=== PATIENT | male | born 1950 | race Caucasian/White ===

== ENCOUNTER → 2018-08-03 09:42 | Outpatient (CLI) | payer MEDICARE ==
[~2018-08-03 09:42] MED LIST: LISINOPRIL10 MG PO; LOVASTATIN40 MG PO; TOPROL XL25 MG PO
--- NOTE | 2018-08-10 11:18 | ST ---
PATIENT:MANFRED CHASE MEDICAL RECORD: [id number] SEX: M LOCATION:[facility] ORDER #: ADMISSION DATE: 08/03/18 AGE OF PATIENT: 67 REFERRING PHYSICIAN: INTERPRETING PHYSICIAN: KAREN ALMAGUER MD DATE OF SERVICE: 08/03/2018 Nuclear Stress Test INDICATION: Angina and coronary artery disease. He was exercised on standard Lexiscan protocol with 33 mCi of sestamibi injected at peak stress. Rest images were done previously with 11 mCi. FINDINGS: Gated SPECT reveals a preserved ejection fraction at 67% with good wall motioning and thickening and brightening throughout all segments. SPECT imaging Cardiolite was used as myocardial perfusion agent. There are reversible changes inferiorly and laterally. This includes the basal, mid apical, inferior segments as well as the apical lateral, mid lateral, and basal lateral segments. The degree of reversibility is moderate. The amount of myocardium involved is large. OVERALL IMPRESSION: 1. This is an abnormal nuclear stress test, moderate amount of reversible ischemia in the inferior and lateral segments. 2. Gated SPECT reveals a preserved ejection fraction at 67% in this patient with ongoing symptomatology. The current scan suggests presence of hemodynamically significant coronary disease and possibly multivessel disease. We will proceed with coronary angiography as followup study. TRANSINT:[id number] Voice Confirmation ID: [id number] DOCUMENT ID: [id number] KAREN ALMAGUER MD at 1118 CC: [id number] DICTATION DATE: 08/03/18 1630 STUDENT SERVICES DIRECTOR: 08/04/18 0510 DEP CLI 08/03/18 [place] [id number] [place] [id number]
[2018-08-10 11:52] VITALS: BMI 42.0
== END | disposition home or self-care (01) ==
LOC: D.HCCARDIO 09:42
DX: I25.709 Atherosclerosis of coronary artery bypass graft(s), unspecified, with unspecified angina pectoris (principal)

== ENCOUNTER 2018-08-10 11:23 | Outpatient (CLI) | payer MEDICARE ==
[~2018-08-10] VITALS: Ht 167.6 cm; Wt 118.2 kg
--- NOTE | ~2018-08-10 | HEMODYNAMI ---
PATIENT:MANFRED CHASE MEDICAL RECORD: [id number] : 48 LOCATION:[facility] ADMISSION DATE: 08/10/18 Generatedon:08/10/201814:03 Patient name: MANFRED CHASE Patient #: [id number] SSN: : 1950 Date of study: 08/10/2018 Page: Of Hemodynamic Procedure Report Patient Data Patient Demographics Procedure consent was obtained First Name: MANFRED Gender: Male Last Name: SALVATORE : 1950 [facility] Initial: [facility] Age: 67 year(s) Patient #: [id number] Race: Unknown Additional ID: [id number] Contact details [address]: [address] [place] [address] State: [place] City: [place] Zip code: [address] Past Medical History Allergies: No known allergies Admission Admission Data Admission Date: 08/10/2018 Admission Time: 11:23 Height (in.): 65.75 BSA: 2.23 (m2) Height (cm.): 167 BMI: 42.31 (kg/m2) Weight (lbs.): 260.15 Weight (kg.): 118 Lab Results Lab Result Date: 08/10/2018 Lab Result Time: 0:00 Biochemistry Name Units Result Min Max BUN mg/dl 21 --(----)-* 7 18 Creatinine mg/dl 1 --(--*-)-- 0.6 1.3 CBC Name Units Result Min Max Hemoglobin g/dl 14.4 --(*---)-- 13.5 17.5 Procedure Procedure Types Cath Procedure Diagnostic Procedure LHC LHC w/Coronaries w/Grafts Aortic Root Angiography Sedation Charges Moderate Sedation up to 30 minutes Procedure Description Procedure Date Procedure Date: 08/10/2018 Procedure Start Time: 13:32 Procedure End Time: 13:58 Procedure Staff Name Function Raymond Song MD Performing Physician Gely Lopez RT Monitor Go Gomez RN Nurse Shazia Land RT Scrub Procedure Data Cath Procedure Fluoroscopy Diagnostic fluoroscopy Total fluoroscopy Time: time: 10.4 min 10.4 min Diagnostic fluoroscopy Total fluoroscopy dose: dose: 1722 mGy 1722 mGy Contrast Material Contrast Material Type Amount (ml) Isovue 300 189 Entry Location Entry Primary Successful Side Size Upsize Upsize Entry Closure Succes sful Closure Location (Fr) 1 (Fr) 2 (Fr) Remarks Device Remarks Femoral Right 5 Fr Exoseal artery Estimated blood loss: 10 ml Diagnostic catheters Device Type Used For End Catheter Placement MULTIPACK JL 4.0 5Fr Procedure catheter MULTIPACK 3DRC 5Fr Procedure catheter DIAGNOSTIC AR MOD 5Fr Procedure Catheter ([id number]) MULTIPACK Pigtail 5 Fr Ventriculography catheter DIAGNOSTIC JR 4 5Fr Procedure catheter ([id number]) Procedure Complications No complications Procedure Medications Medication Administration Route Dosage 0.9% NaCl I.V. 100 ml/hr Oxygen etCO2 Nasal cannula 2 l/min Heparin Flush Bag added to field 2 bags (1000units/500ml NS) Lidocaine 2% added to field 20 Versed I.V. 2 mg Fentanyl I.V. 100 mcg Versed I.V. 1 mg Hemodynamics Rest BSA: 2.23 (m2) HGB: 14.4 (g/dl) O2 Consumption: Estimated: 267.15 (ml/min) O2 Co nsumption indexed: Estimated:119.8 (ml/min/m) Heart Rate: 80 (bpm) Pressure Samples Time Site Value (mmHg) Purpose Heart Use Rate(bpm) 13:48 LV 123/17,26 Snapshot 77 13:48 AO 116/60(83) Pullback 77 13:48 LV 120/12,19 Pullback 77 Gradients Valve Time Site 1 Site 2 Mean SEP/DFP Peak To Heart Use (mmHg) (sec/min) Peak Rate (mmHg) (bpm) Aortic 13:48 LV AO 8 21 4 77 120/12,19 116/60(83) Calculations Valve P-P Mean Valve Index Valve Source Name Gradient Area Flow (cm2) Aortic 4 8 4 8 Snapshots Pre Cath Intra NCS Post Cath Vital Signs Time Heart Resp SPO2 etCO2 NIBP (mmHg) Rhythm Pain Sedation Rate (ipm) (%) (mmHg) Status Level (bpm) 12:54:55 77 14 99 18.8 144/76(128) NSR 0 (11) 10(A) , No pain 12:59:07 79 12 100 23.4 145/80(104) NSR 0 (11) 10(A) , No pain 13:03:23 77 12 100 23.4 138/78(118) NSR 0 (11) 10(A) , No pain 13:07:31 78 13 99 21.1 135/78(111) NSR 0 (11) 10(A) , No pain 13:11:43 75 12 99 19.6 142/76(94) NSR 0 (11) 10(A) , No pain 13:15:59 76 14 99 17.3 145/75(108) NSR 0 (11) 10(A) , No pain 13:20:13 79 12 97 16.6 138/73(116) NSR 0 (11) 10(A) , No pain 13:24:31 76 12 97 14.3 130/70(104) NSR 0 (11) 10(A) , No pain 13:28:45 78 14 98 23.4 128/73(102) NSR 0 (11) 10(A) , No pain 13:32:57 79 13 98 16.6 134/74(101) NSR 0 (11) 10(A) , No pain 13:37:09 80 13 98 15.8 138/80(109) NSR 0 (11) 9(A) , No pain 13:41:18 78 12 98 15.1 135/73(104) NSR 0 (11) 9(A) , No pain 13:45:32 76 13 96 15.1 133/72(103) NSR 0 (11) 9(A) , No pain 13:49:46 76 12 97 20.4 119/70(99) NSR 0 (11) 9(A) , No pain 13:53:54 76 12 96 16.6 137/75(101) NSR 0 (11) 9(A) , No pain 13:58:08 74 11 97 12.8 144/81(115) NSR 0 (11) 9(A) , No pain Medications Time Medication Route Dose Verified Delivered Reason Notes Eff ectiveness by by 12:54:30 0.9% NaCl I.V. 100 Go Go Per ml/hr Patricia Gomez physician RN RN 12:54:44 Oxygen etCO2 2 Go Go for low 02 Nasal l/min Patricia Gomez sats cannula RN RN 12:54:55 Heparin Flush added 2 Go Go used for Bag to bags Lorigan Patricia procedure (1000units/500ml field RN RN NS) 12:55:07 Lidocaine 2% added 20ml Go Go for local to vial Lorigan Lorigan anesthetic field RN RN 13:18:04 Versed I.V. 2 mg Go Go for Lorigan Lorigan sedation RN RN 13:18:12 Fentanyl I.V. 100 Go Go for mcg Lorigan Lorigan sedation RN RN 13:29:56 Versed I.V. 1 mg Go Go for Lorigan Lorigan sedation RN manager infrastructure Log Time Note 12::33 Lab Result : BUN 21 mg/dl 12:43:33 Lab Result : Hemoglobin 14.4 g/dl 12:43:33 Lab Result : Creatinine 1 mg/dl 12:44:01 Diagnostic Cath status Elective 12:44:03 Shazia Land RT(R) sent for patient. Start room use. 12:44:04 Time tracking: Regular hours (M-F 7:00 - 5:00) 12:44:11 Plan of Care:Hemodynamics will remain stable., Cardiac rhythm will remain stable., Comfort level will be maintained., Respiratory function will remain adequate., Patient/ family verbilizes understanding of procedure., Procedure tolerated without complication., Recovers from procedure without complications.. 12:53:46 Patient received from Pre/Post Procedure Room to [facility] 2 Alert and oriented. Tansferred to table in Supine position. 12:53:47 Warm blankets applied, and tevin hugger turned on for patient comfort. 12:53:48 Correct patient and procedure confirmed by team. 12:53:50 Signed procedure consent form obtained from patient. 12:53:51 ECG and BP/O2 sat monitors applied to patient. 12:53:52 Baseline sample Acquired. 12:53:52 Vital chart was started 12:53:56 Full Disclosure recording started 12:54:03 H&P Date Dictated: 08/10/2018 Within 30 days and on chart., H&P Addendum completed by physician on day of procedure. (MUST COMPLETE FOR ALL OUTPATIENTS). 12:54:04 Pre-procedure instructions explained to patient. 12:54:07 Family in waiting room. 12:54:08 Patient NPO since Midnight. 12:54:15 Patient allergic to No known allergies 12:54:18 Is the patient allergic to Iodine/contrast media? No. 12:54:19 Was the patient premedicated? Yes 12:54:20 Is patient on blood thinner?No 12:54:22 Patient diabetic? No. 12:54:30 0.9% NaCl 100 ml/hr I.V. was administered by Go Gomez RN; Per physician; 12:54:30 Snore? Yes 12:54:30 Sleep apnea? Yes 12:54:32 Deviated septum? No 12:54:38 Dentures? Yes tight 12:54:44 Oxygen 2 l/min etCO2 Nasal cannula was administered by Go Gomez RN; for low 02 sats; 12:54:45 Patient pain scale 0/10 ?. 12:54:50 IV patent on arrival in left forearm with 0.9% NaCl at [facility]. 12:54:54 Lab results completed and on chart. 12:54:55 Heparin Flush Bag (1000units/500ml NS) 2 bags added to field was administered by Go Gomez RN; used for procedure; 12:54:57 Right groin area was prepped with chlora-prep and draped in sterile fashion 12:54:58 Alarms reviewed by R. N. 12:54:59 Sharps counted by scrub and verified by R.N. 12:55:07 Lidocaine 2% 20ml vial added to field was administered by Go Gomez RN; for local anesthetic; 12:55:08 Pre procedure: right dorsailis pedis pulse 1+ Palpable, but thready & weak; easily obliterated 12:55:13 Use device set Femoral Dx 12:55:14 ACIST Syringe (66994) opened to sterile field. 12:55:14 Bag Decanter () opened to sterile field. 12:55:15 Medline Cath Pack ([id number]) opened to sterile field. 12:55:15 DIAGNOSTIC WIRE .035 260cm J wire (696196) opened to sterile field. 12:55:17 ACIST Hand Control (46287) opened to sterile field. 12:55:17 ACIST Manifold (10345) opened to sterile field. 12:55:18 DIAGNOSTIC Multipack 5Fr catheter set (US3099) opened to sterile field. 12:55:18 Tegaderm 4 x 4 (1626W) opened to sterile field. 12:55:19 EXOSEAL 5Fr (EX500) opened to sterile field. 12:56:15 Patient Height : 65.75 inches 12:56:20 Patient Weight : 260.15 lbs 13:00:22 Zero performed for pressure channel P1 13:17:15 Physician arrived 13:17:16 --------ALL STOP TIME OUT------ 13:17:24 Final Timeout: patient, procedure, and site verified with staff and physician. All members of the team are in agreement. 13:17:27 Right groin site verified by team. 13:17:31 Fire Safety Assessment: A--An alcohol-based skin anteseptic being used preoperatively., C--Open oxygen or nitrous oxide is being used., D--An ESU, laser, or fiber-optic light is being used. 13:17:35 Physical assessment completed. ASA score P 2 - A patient with mild systemic disease as per Raymond Song MD. 13:17:38 Sedation plan: IV Moderate Sedation Medication:Versed, Fentanyl 13:18:04 Versed 2 mg I.V. was administered by Go Gomez RN; for sedation; 13:18:12 Fentanyl 100 mcg I.V. was administered by Go Gomez RN; for sedation; 13:29:56 Versed 1 mg I.V. was administered by Go Gomez RN; for sedation; 13:32:07 Procedure started. 13:32:21 Local anesthetic to right femoral artery with Lidocaine 2% by Raymond Song MD.INITIAL ACCESS ONLY 13:32:32 A 5 Fr sheath was inserted into the Right Femoral artery 13:32:40 J wire advanced. 13:34:49 A MULTIPACK JL 4.0 5Fr catheter was advanced over the wire and used for Procedure. 13:34:51 SHEATH 5FR [place] (IHX871) opened to sterile field. 13:35:01 LCA angiography performed. 13:36:00 Catheter removed. 13:36:09 A MULTIPACK 3DRC 5Fr catheter was advanced over the wire and used for Procedure. 13:36:13 RCA angiography performed. 13:39:13 SVG to Diag angiography performed. 13:39:47 SVG to Ramus angiography performed. 13:41:48 GUNTER to LAD angiography performed. 13:42:15 Catheter removed. 13:42:41 A DIAGNOSTIC AR MOD 5Fr Catheter ([id number]) was advanced over the wire and used for Procedure. 13:45:31 SVG to Circ angiography performed. 13:46:05 SVG to RPDA angiography performed. 13:46:08 Catheter removed. 13:46:19 A MULTIPACK Pigtail 5 Fr catheter was advanced over the wire and used for Ventriculography. 13:46:32 LV angiography performed. 13:46:35 LV gram done using RIOS 13:48:21 EF : 55 % 13:48:40 Aortic Root visualized 13:49:18 Catheter removed. 13:52:15 A DIAGNOSTIC JR 4 5Fr catheter (701272O) was advanced over the wire and used for Procedure. 13:54:53 RCA angiography performed. 13:55:04 Catheter removed. 13:55:50 Sheath removed intact; hemostasis achieved with Exoseal to the Right Femoral artery. 13:55:54 Procedure ended.(Physican Out) 13:56:16 Fluoroscopy time 10.40 minutes. 13:56:21 Fluoroscopy dose: 1722 mGy 13:56:21 Flurop Dose total: 1722 13:56:24 Contrast amount:Isovue 300 189ml. 13:56:26 Sharps counted by scrub and verified by R.N. 13:56:27 Insertion/operative site no bleeding no hematoma. 13:56:32 Post-op/insertion site Right Femoral artery dressed using a 4 x 4 and Tegaderm. 13:56:34 Post Procedure Pulses reassessed and unchanged 13:56:37 Post-procedure physical assessment completed. ASA score P 2 - A patient with mild systemic disease as per Raymond Song MD. 13:56:40 Post procedure rhythm: unchanged. 13:56:43 Estimated blood loss: 10 ml 13:56:45 Post procedure instruction explained to patient.Patient verbalizes understanding. 13:57:29 Patient needs reinforcement of post procedure teaching. 13:57:44 Procedure type changed to Cath procedure, Diagnostic procedure, LHC, LHC w/Coronaries w/Grafts, Aortic Root Angiography, Sedation Charges, Moderate Sedation up to 30 minutes 13:58:15 Procedure and supply charges have been captured, reviewed, submitted and are correct. 13:58:38 Procedure Complication : No complications 13:58:41 Vital chart was stopped 13:58:47 See physician's report for complete and final results. 13:58:49 Report given to Pre/Post Procedure Room. 13:58:53 Patient transfered to Pre/Post Procedure Room with Stretcher. 13:58:55 Procedure ended. 13:58:55 Full Disclosure recording stopped 13:59:00 End room use (Document Last) Device Usage Item Name Manufacture Quantity Catalog Hospital Part Current Minimal L ot# / Number Charge Number Stock Stock Serial# Code ACIST Acist 1 26146 680966 652687 674108 20 Syringe Medical (56472) Systems Inc Bag Microtek 1 2001S 707251 30630 356087 5 Decanter Medical Inc. () Medline Medline 1 [id number] 681905 04149 335656 5 Cath Pack ([id number]) DIAGNOSTIC St Jaime 1 727799 840559 035709 964832 30 WIRE .035 260cm J wire (319428) ACIST Hand Acist 1 75293 143719 616252 704195 5 Control Medical (46018) Systems Inc ACIST Acist 1 83578 726273 458779 583008 5 Manifold Medical (31369) Systems Inc DIAGNOSTIC Cardinal 1 QT9437 153016 12775 214981 30 Multipack Health 5Fr catheter set (RN8368) Tegaderm 4 3M 1 1626W 407533 326297 693764 5 x 4 (1626W) EXOSEAL 5Fr Cardinal 1 EX500 610270 099928 736233 10 (EX500) Health MULTIPACK Cardinal 1 535534 5 JL 4.0 5Fr Health catheter SHEATH 5FR Terumo 1 ZVJ732 008025 861949 276031 5 [place] (TJJ278) MULTIPACK Cardinal 1 429235 5 3DRC 5Fr Health catheter DIAGNOSTIC Cardinal 1 [id number] 599640 027566 448282 15 AR MOD 5Fr Health Catheter (900138H) MULTIPACK Cardinal 1 609528 5 Pigtail 5 Health Fr catheter DIAGNOSTIC Cardinal 1 [id number] 816434 808907 760346 5 JR 4 5Fr Health catheter (940069U) Signature Audit [place] Stage Time Signature Unsigned Intra-Procedure 08/10/2018 Gely Lopez 2:03:14 PM RT(R) Signatures Monitor : Gely Lopez Signature : RT Date : Time : [place] [address] [place] [address]
[2018-08-10] MEDS ORDERED: LISINOPRIL10 MG PO (11:42)
[2018-08-10] MEDS ORDERED: TOPROL XL25 MG PO (11:43)
[2018-08-10] MEDS ORDERED: LOVASTATIN40 MG PO (11:43)
[2018-08-10 11:52] VITALS: BP 146/68; Ht 167.6 cm; Wt 118.2 kg
[2018-08-10 12:16] LABS: CALC OSMOLALITY 276 mosm/kg (275-300); CALCIUM 9.1 mg/dL (8.5-10.1); CARBON DIOXIDE 24.4 mmol/L (21.0-32.0); CHLORIDE - SERUM 101 mmol/L (98-107); GLUCOSE 107 mg/dL (74-106); POTASSIUM - SERUM 4.3 mmol/L (3.5-5.1); SODIUM 137 mmol/L (136-145); UREA NITROGEN 21 mg/dL (7-18); eGFR NON AFRICAN AMERICAN 79 mL/min (90-120)
[2018-08-10 12:33] LABS: HEMATOCRIT 39.9 % (42.0-54.0); HEMOGLOBIN 14.4 g/dL (13.5-17.5); LYMPHOCYTES 24.5 % (15-50); MCHC 36.1 g/dL (31.0-37.0); MCV 91.3 fL (80.0-100.0); MEAN PLATELET VOLUME 8.6 fL (7.4-10.4); NEUTROPHILS 66.9 % (40-80); PLATELET COUNT 240 10x3/uL (130-400); RBC 4.37 10x6/uL (4.20-6.10); WBC 6.3 10x3/uL (4.8-10.8)
--- NOTE | 2018-08-10 14:25 | NUR ---
2L NC, NO RESP DISTRESS. RIGHT GROIN 5F EXOSEAL CDI, NO BLEEDING OR HEMATOMA NOTED. NO C/O PAIN OR NAUSEA. VSS. FAMILY AT BEDSIDE, CALL LIGHT WITHIN REACH.
--- NOTE | 2018-08-10 14:55 | NUR ---
RESTING QUIETLY WITH EYES CLOSED. RIGHT GROIN 5F EXOSEAL CDI, NO BLEEDING OR HEMATOMA NOTED. DENIES ANY NEEDS. VSS. WILL CONTINUE TO MONITOR.
--- NOTE | 2018-08-10 15:15 | NUR ---
HOB ELEVATED 30 DEGREES. RIGHT GROIN 5F EXOSEAL CDI, NO BLEEDING OR HEMATOMA NOTED. SIPPING ON DRINK AND EATING SANDWICH WITH NO C/O. VSS. WILL CONTINUE TO MONITOR.
--- NOTE | 2018-08-10 15:40 | NUR ---
LEFT PIV D/C'D WITH CATHETER INTACT, BAND AID TO SITE. UP TO BEDSIDE TO GET DRESSED. AMBULATED TO RESTROOM.
--- NOTE | 2018-08-10 15:48 | NUR ---
DSICHARGE INSTRUCTIONS GIVEN, VERBALIZED UNDERSTANDING.
--- NOTE | 2018-08-10 15:56 | NUR ---
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 LEFT FACILITY WITH FAMILY AND ALL PERSONAL BELONGINGS.
--- NOTE | 2018-08-14 10:16 | HP ---
PATIENT: MANFRED CHASE MEDICAL RECORD: [id number] ACCOUNT: [id number] LOCATION:[place] : 48 ADMISSION DATE: 08/10/18 PCP: MEHNAZ MARS HISTORY AND PHYSICAL EXAMINATION HISTORY OF PRESENT ILLNESS: A 67-year-old gentleman with a history of coronary artery disease status post coronary artery bypass grafting, seen in the office with symptoms consistent with angina. Underwent Cardiolite stress testing, reversible ischemia. He is being brought to hospital for angiography. PAST MEDICAL HISTORY: Includes; 1. History of coronary artery disease, status post grafting. 2. Hypertension. 3. Hyperlipidemia. MEDICATIONS: Includes lisinopril 10 mg p.o. daily; Lovastatin 40 every day; metoprolol/hydrochlorothiazide 50/12.5 every day. ALLERGIES: None known. PHYSICAL EXAMINATION: GENERAL: Pleasant gentleman in no acute distress. HEENT: Normocephalic, atraumatic. NECK: No bruits noted. HEART: Regular. A II/ systolic ejection murmur. LUNGS: Good air excursion. ABDOMEN: Soft, nontender. EXTREMITIES: Pulse 2+ with no edema. IMPRESSION: Plan for angiography, intervention based on above. TRANSINT:[id number] Voice Confirmation ID: [id number] DOCUMENT ID: [id number] JARAD GARG MD at 1016 CC: [id number] DICTATION DATE: 08/10/18 1402 STOCK ANALYST: 08/10/18 1459 DEP CLI 08/10/18 [place] [address] [place] [address]
--- NOTE | 2018-08-14 10:16 | OP ---
PATIENT NAME: MANFRED CHASE MEDICAL RECORD: [id number] :48 LOCATION:D.CAT ADMISSION DATE: SURGEON: JARAD GARG MD DATE OF OPERATION: 08/10/2018 Left heart catheterization plus aortic root plus bypass grafts, right femoral artery approach. CATHETERS: A 5-Jamaican, 5/4 left and right Elida, 5/4 pig. The procedure was well tolerated. The patient was returned to christie, sheath removed. ExoSeal device was placed. FINDINGS: Left ventriculography in 30-degree RIOS view. Normal wall motion, normal systolic function. CORONARY ANATOMY: LEFT MAIN: Left main fills for a short period of time, gives rise to LAD and circumflex. LAD: Fills for its mid portion and is seen filling via competitive flow via the GUNTER. CIRCUMFLEX: There is a small terminal circumflex, free of disease. RIGHT CORONARY ARTERY: Fills for about its mid portion, is totally occluded. BYPASS GRAFTS: 1. Saphenous vein graft is a skip graft actually goes to both the right and OM, is widely patent throughout its course, saphenous vein graft. 2. This is a vein graft to high OM versus ramus branch. Again, this is widely patent graft. GUNTER to the LAD is widely patent throughout its course. Aortic root injection that is performed to assess bypass graft and it showed 2 bypass described above. IMPRESSION: A widely patent bypass grafts and normal left ventricular function. TRANSINT:[id number] Voice Confirmation ID: [id number] DOCUMENT ID: [id number] JARAD GARG MD at 1016 CC: [id number] DICTATION DATE: 08/10/18 1403 AUTOMATIC FOLDER SEAMER: 08/10/18 2256 DEP CLI 08/10/18 [place] [address]
== END 2018-08-10 15:56 | disposition home or self-care (01) ==
LOC: D.CATH 11:23
PROVIDERS: ATTEND Internal Medicine Interventional Cardiology
DX: I25.119 Atherosclerotic heart disease of native coronary artery with unspecified angina pectoris (principal); Z95.1 Presence of aortocoronary bypass graft; I10 Essential (primary) hypertension; E78.5 Hyperlipidemia, unspecified; Z79.899 Other long term (current) drug therapy